=== PATIENT | female | born 1940 | race Caucasian/White ===

== ENCOUNTER 2025-03-29 21:57 | Emergency (ER) | payer BC, MEDICARE, OTHER ==
[2025-03-30 00:53] VITALS: BP 149/69; PULSE 65
== END 2025-03-30 00:35 | disposition home or self-care (01) ==
LOC: DL.ED 21:57
DX: S93.491A Sprain of other ligament of right ankle, initial encounter (principal); S69.91XA Unspecified injury of right wrist, hand and finger(s), initial encounter; Z88.2 Allergy status to sulfonamides; Z88.8 Allergy status to other drugs, medicaments and biological substances; Z79.82 Long term (current) use of aspirin; Z79.899 Other long term (current) drug therapy; X50.1XXA Overexertion from prolonged static or awkward postures, initial encounter
CPT/HCPCS: 29130; 73140-RT; 73610-RT; 99283-25